=== PATIENT | female | born 1945 | race African-American/Black ===

== ENCOUNTER 2020-04-29 18:32 | IRF | payer OTHER, MEDICARE, SELFPAY ==
[2020-04-29 18:35] VITALS: BMI 31.6
--- NOTE | 2020-04-29 18:42 | ADMGEN ---
This patient, Calli Brown, was admitted to [facility] Room 218-01. Patient/family oriented to hospital policies and general routines including ID bracelet, bed and alarms, visiting hours, pain management, procedures, bathroom and other care routines, personal items, smoking policy, room service/diet, and visiting hours. Information on how to activate the Rapid Response Team has been discussed. Patient/Family are encouraged to report perceived risks to care and to ask questions if they do not understand what they are told or what they should do. [id number] Patient arrived to [facility] alert and oriented pleasant per ems, stable on trip here. daughter Dany here with patient
--- NOTE | 2020-04-29 18:47 | PC.NURSE ---
This patient, Calli Brown, was admitted to [facility] Room 218-01. Patient/family oriented to hospital policies and general routines including ID bracelet, bed and alarms, visiting hours, pain management, procedures, bathroom and other care routines, personal items, smoking policy, room service/diet, and visiting hours. Information on how to activate the Rapid Response Team has been discussed. Patient/Family are encouraged to report perceived risks to care and to ask questions if they do not understand what they are told or what they should do.
[2020-04-29 18:50] VITALS: BP 147/83; PULSE 90; RESP 20; TEMP 36.5; O2SAT 98
[2020-04-29] MEDS: ENOXAPARIN 40 MG/0.4 ML SYRINGE SUB-Q (21:10)
[2020-04-29 22:00] VITALS: BP 126/72; PULSE 68; RESP 16; TEMP 36.4; O2SAT 97
[2020-04-30 05:29] LABS: Basophils Percent Auto 0.5 % (0.2-1.2); Eosinophils Absolute Auto 0.1 K/mm3 (0-0.3); Eosinophils Percent Auto 0.9 % (0-4.4); Hematocrit 37.8 % (37.0-47.0); Hemoglobin 12.5 g/dL (12.0-15.0); Immature Granulocyte Absolute 0.02 K/mm3 (0.00-0.031); Immature Granulocyte Percent A 0.3 % (0-0.5); Lymphocytes Absolute Auto 2.31 K/mm3 (0.9-3.2); Lymphocytes Percent Auto 39.8 % (18.3-44.2); Mean Corpuscular HGB Conc 33.1 g/dl (32-36); Mean Corpuscular Volume 87.7 fl (80-100); Mean Platelet Volume 12.5 fl (7.4-10.4); Monocytes Absolute Auto 0.5 K/mm3 (0.1-0.6); Monocytes Percent Auto 8.6 % (2.6-8.5); Neutrophils Absolute Auto 2.9 K/mm3 (1.3-6.7); Neutrophils Percent Auto 49.9 % (45.5-73.1); Platelet Count Result 199 k/mm3 (150-375); Red Blood Count 4.31 M/mm3 (4.2-5.4); Red Cell Distribution Width 13.8 % (11.5-14.5); White Blood Count 5.8 K/mm3 (4.5-10.0)
[2020-04-30 05:39] LABS: Anion Gap 6 mmol/L (8-16); Blood Urea Nitrogen 13 mg/dL (7-17); Calcium 9.6 mg/dL (8.4-10.2); Carbon Dioxide 29 mmol/L (22-30); Chloride 107 mmol/L (98-107); Cholesterol 243 mg/dL (0-200); Estimated CRCL calculation 49 ml/min; Estimated Glomerular Filt Rate > 60; Glucose 106 mg/dL (65-105); HDL Direct 34 mg/dL; Potassium 3.8 mmol/L (3.4-5.0); Sodium 142 mmol/L (137-145); Triglycerides 148 mg/dL (<150)
[2020-04-30 05:50] LABS: LDL Cholesterol Direct 163 mg/dL
[2020-04-30 05:55] LABS: Atypical Lymphocytes Present; Platelet Estimate Adequate (Adequate)
[2020-04-30 06:00] VITALS: BP 129/70; PULSE 66; RESP 18; TEMP 36.8; O2SAT 97
[2020-04-30] MEDS: CLOPIDOGREL BISULFATE 75 MG TABLET PO (08:18)
[2020-04-30] MEDS: ATORVASTATIN 40 MG TABLET 80 MG PO (08:18)
[2020-04-30] MEDS: ASPIRIN 81 MG ENTERIC TABLET PO (08:18)
--- NOTE | 2020-04-30 10:00 | PM.IMHP ---
H&P: HPI History of Present Illness Date/Time: 04/30/20 11:20 Chief complaint: CVA Narrative: Calli Brown is a 75 year old female she is right-handed and is admitted with the primary have improvement medically of stroke The etiologic diagnosis acute infarct in the central right frontal lobe with moderately severe left hemiparesis The patient was examined by this examiner [id number] at 10:00 a.m. on April 30, 2020 H&P The patient is a 75-year-old right-handed Afro [place] woman with past medical history of hypertension hyperlipidemia and chronic knee pain. The patient presented to [facility] emergency room with complaints of left-sided weakness and April 26, 2020. The patient reported that on April 25 at 2:00 p.m. she noticed her left hand being weak having trouble typing and having a temporary ache in her left shoulder. The patient's symptom did resolve by nighttime on April 25. Upon awakening the morning of 04 26 at 5:00 a.m. the patient noticed weakness in her left leg and stated she had a hard time sitting up and ambulating. She fell while in the bathroom and denied injuries from this fall. She also noted left facial droop and slurring of the speech. A head CT showed focal hypodensities adjacent to the anterior horn of the lateral ventricles bilaterally, a new from 2015 comparison which most likely represented a small old lacunar infarcts. A brain MRI was recommended and minimal atrophy and [id number] small vessel ischemic disease was noted. Head and neck CTA revealed moderate narrowing of the right posterior cerebral artery age indeterminate proximal occlusion of the right vertebral artery, significant carotid atherosclerosis with 30% right ICA stenosis and 15% left ICA stenosis, scattered small involved air cyst in the right upper lobe with non emergent chest CT recommended. A brain MRI was obtained and revealed a small acute infarct in the central frontal right lobe additional tiny punctate foci of acute infarct in the left frontal lobe and chronic senescent changes. Dr. ang with tele Neurology was consulted and the patient was loaded with 300 milligram of Plavix was and started on 75 milligram daily with additional aspirin 81 milligram for 3 weeks then she will be on Plavix alone. Echocardiogram showed an ejection fraction of 65 to 70% and no shunt. She presented outside the window of tPA. She passed her bedside swallow evaluation and was placed on a regular can consistency heart healthy low-sodium diet physical examination continues to show left-sided weakness, decreased gross motor coming control, decreased safety awareness, left-sided neglect and impaired balance. She is awake alert oriented very well. The patient was discharged to us on Lovenox for DVT prophylaxis and will continue on this until she is ambulating ambulating consistently at least 150 feet daily The therapies were initiated at the acute care facility and the patient was transferred to us from [facility] in [facility] on May 07, 2020 The patient has had no major surgery in the last days. The patient has had 1 fall in the past year. Patient has had no falls with injury in the past year. Past medical history, hypertension, hyperlipidemia, and chronic knee pain. Past surgical history appendectomy and colonoscopy Past surgical history, appendectomy and colonoscopy Social history, the patient is single never smoker. Occasional use of alcohol. Denies any illicit use of drugs. 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 The patient is able to live on the main level with bedroom/bathroom available. The patient was completely independent prior and working as a nurse. She denies use the device at baseline. Family history, mother with hypertension stroke. Siblings with hypertension. Father with cancer. Prior level of function was completely independent in all spheres of
[2020-04-30 12:42] VITALS: BMI 31.6
--- NOTE | 2020-04-30 13:19 | PCNSR ---
On 04/30/20, the student, Meghan Hyde, provided care and completed [facility] documentation on this patient. I have reviewed the student's documentation and agree with the findings.
[2020-04-30 14:00] VITALS: BP 144/83; PULSE 87; RESP 16; TEMP 37.3; O2SAT 99
[2020-04-30] MEDS: ENOXAPARIN 40 MG/0.4 ML SYRINGE SUB-Q (20:23)
[2020-04-30 22:00] VITALS: BP 143/87; PULSE 72; RESP 16; TEMP 36.8; O2SAT 98
[2020-05-01 06:00] VITALS: BP 134/61; PULSE 65; RESP 14; TEMP 36.2; O2SAT 98
[2020-05-01] MEDS: ATORVASTATIN 40 MG TABLET 80 MG PO (08:19)
[2020-05-01] MEDS: ASPIRIN 81 MG ENTERIC TABLET PO (08:19)
[2020-05-01] MEDS: CLOPIDOGREL BISULFATE 75 MG TABLET PO (08:19)
[2020-05-01 14:00] VITALS: BP 144/70; PULSE 103; RESP 16; TEMP 36.1; O2SAT 97
[2020-05-01] MEDS: ENOXAPARIN 40 MG/0.4 ML SYRINGE SUB-Q (20:38)
[2020-05-01 21:29] VITALS: BP 129/73; PULSE 76; RESP 16; TEMP 36.6; O2SAT 95
[2020-05-02 06:00] VITALS: BP 122/54; PULSE 79; RESP 16; TEMP 36.8; O2SAT 95
[2020-05-02] MEDS: ASPIRIN 81 MG ENTERIC TABLET PO (09:38)
[2020-05-02] MEDS: CLOPIDOGREL BISULFATE 75 MG TABLET PO (09:38)
[2020-05-02] MEDS: ATORVASTATIN 40 MG TABLET 80 MG PO (09:38)
--- NOTE | 2020-05-02 09:54 | WPDNEURORHBP ---
Subjective Date/time seen: 05/02/20 09:54 Interval history: this 75-year-old Afro-Citizen Of [place] woman is here after having had stroke which has left her with the moderately severe left-sided hemiparesis from which she is improving quite a bit she has been able to walk with eye minh can with 150 feet several times so we should be able to discontinue Lovenox she denies any headache nausea vomiting chest pain shortness of breath fever chills sore throat Review of Systems Review of Systems: All systems reviewed & are unremarkable except as noted in HPI and below Functional Status Ambulation Ability Ability to Ambulate 10 Feet: Moderate Assistance X 1 Ability to Ambulate 50 Feet With 2 Turns: Moderate Assistance X 1 Ability to Ambulate 150 Feet: Moderate Assistance X 1 Ambulation Assistive Devices: Cane, Minh Exam Narrative: Exam Narrative: patient is awake alert well oriented time place and person has normal speech and language function and improving left-sided hemiparesis The ENT eye examination is fairly decent neck is supple lungs are clear cardiovascular examination is negative abdomen is soft nontender extremities is reveal no deformities Objective Data Vital Signs Vital Signs: Vital Signs - 24 hr 05/01/20 14:00 05/01/20 21:29 05/02/20 06:00 Temperature 36.1 C L 36.6 C 36.8 C Pulse Rate 103 H 76 79 Respiratory Rate 16 16 16 Blood Pressure 144/70 H 129/73 122/54 L Pulse Oximetry 97 95 95 Intake/Output Intake/Output: Intake & Output 04/29/20 04/30/20 05/01/20 05/02/20 23:59 23:59 23:59 23:59 Intake Total 840 840 Balance 840 840 Meds/Results Medications: Active Medications Generic Name Dose Route Start Last Admin Trade Name Freq PRN Reason Stop Dose Admin Aspirin 81 mg 04/30/20 09:00 05/02/20 09:38 Aspirin 81 Mg Enteric Tablet PO 81 mg DAILY JAYMIE Administration Atorvastatin Calcium 80 mg 04/30/20 09:00 05/02/20 09:38 Atorvastatin 40 Mg Tablet PO 80 mg DAILY JAYMIE Administration Calcium Carbonate 500 mg 04/29/20 21:00 05/01/20 20:38 Calcium/Vitamin D 500 Mg Tablet PO 05/29/20 21:01 500 mg HS JAYMIE Administration Clopidogrel Bisulfate 75 mg 04/30/20 09:00 05/02/20 09:38 Clopidogrel Bisulfate 75 Mg Tablet PO 75 mg DAILY JAYMIE Administration Diltiazem HCl 240 mg 04/29/20 21:00 05/01/20 20:38 Diltiazem Hcl Cd 240 Mg Cap.Er.24h PO 240 mg HS JAYMIE Administration Furosemide 20 mg 04/29/20 19:41 Furosemide 20 Mg Tablet PO DAILY PRN Edema Progress Note: A&P Assessment and Plan (1) Hyperlipidemia: Code(s): E78.5 - Hyperlipidemia, unspecified Status: Acute (2) Bilateral chronic knee pain: Code(s): M25.561 - Pain in right knee; M25.562 - Pain in left knee; G89.29 - Other chronic pain Status: Acute (3) Hypertension: Code(s): I10 - Essential (primary) hypertension Status: Acute (4) Stroke: Code(s): I63.9 - Cerebral infarction, unspecified Status: Acute (5) Left hemiparesis: Code(s): G81.94 - Hemiplegia, unspecified affecting left nondominant side Status: Acute Additional Plan we will continue the present medical management PT OT and gait training
--- NOTE | 2020-05-02 12:12 | RPD ---
INDIVIDUALIZED PLAN OF CARE FOR Calli Brown Brief Synthesis of Pre-Admission Screen, Post-Admission Evaluation and Therapy Evaluations: The patient presents to rehab with an acute infarct in the central right frontal lobe. Comorbidities include hypertension, hyperlipidemia, left-sided weakness, and chronic knee pain.This patient requires intensive therapies to restore lost function due to right frontal lobe stroke in order to maximize their functional level of independence and quality of life. The complexity of the patient's medical management, nursing, and therapy needs require an inpatient rehab hospital stay with a physician-led interdisciplinary team approach. The patient?s needs will be best met in an intensive program vs. at a lower level of care. The patient requires physician services for neurology services, medical oversight, and coordination of care. Emotional needs will be monitored as depression is a common sequelae of stroke. The patient needs physician monitoring and treatment of hypertension, monitoring for adverse reactions to new medications, monitoring for infection, and pain control. The patient requires nursing services for frequent neuro checks, anticoagulation therapy, medication management and education, pressure relief and skin care management, monitoring of labs, and fall/safety precautions. Deficits include:ADLs, Balance, Endurance, Family Training/Education, Mobility, Pain Management, ROM, Safety, Strength, and Transfers. Sales Service Assistant/Case Management for: Discharge Planning and Patient/Family Counseling Physical Therapy: 5 days per week for 90 minutes. Treatments may include: Therapeutic Exercise, Gait Training, Neuromuscular Re-education, Transfer Training, Community Reintegration, Bed Mobility, Patient/Family Education, Wheelchair Mobility Group Therapy/Concurrent Therapy Rationales: -Improve attention span during functional activities in a distracted environment. -Enhance problem solving and/or adequate judgment skills during functional activities in a distracted environment. -Promote increased safety awareness in a distracted environment to reduce fall risk with functional tasks, transfers, and ambulation to allow a more safe, self-sufficient return to the home environment. -Improve dynamic balance skills to promote safety and independence with functional activities in a distracted environment for maximum gain. Occupational Therapy: 5 days per week for 90 minutes. Treatments may include: Therapeutic Exercise, Therapeutic Activity, Cognitive Training, Self-Care Transfer Training, Community Reintegration, Home Management, Patient/Family Education, Wheelchair Mobility Training, Energy Conservation Training Group Therapy/Concurrent Therapy Rationales: -Allow therapist to observe and teach generalization and carry-over of skills learned in individual therapy. -Enhance problem solving and sequencing skills during therapeutic activities in a distracted environment. -Promote increased safety awareness in a realistic setting to reduce fall risk with functional tasks due to visual and verbal distractions. -Increase functional level with ADLs, ADL transfers and use of adaptive equipment through therapeutic activities with others while promoting safety to allow a more safe, self-sufficient return home. Medical Prognosis: Good Anticipated Length of Stay: 10 days Rehab Goals: Eating Goal: 06-Independent Oral Hygiene Goal: 06-Independent Toileting Hygiene Goal: 06-Independent Shower/Bathe Self Goal: 05-Setup or Clean Up Assistance Upper Body Dressing Goal: 05-Setup or Clean Up Assistance Lower Body Dressing Goal: 05-Setup or Clean Up Assistance Putting On/Taking Off Footwear Goal: 05-Setup or Clean Up Assistance Rolling Left and Right Goal: 06-Independent Sit to Lying Goal: 06-Independent Lying to Sitting on Side of Bed Goal: 06-Independent Sit to Stand Goal: 06-Independent Chair/[id number] Transfer Goal: 06-Independent Toilet
[2020-05-02 14:00] VITALS: BP 122/72; PULSE 86; RESP 16; TEMP 36.5; O2SAT 96
[2020-05-02 20:41] VITALS: BP 144/73; PULSE 85; RESP 16; TEMP 36.1; O2SAT 96
[2020-05-03 05:47] VITALS: BP 140/67; PULSE 62; RESP 16; TEMP 36; O2SAT 99
[2020-05-03 08:00] VITALS: PULSE 62; RESP 16; O2SAT 99
[2020-05-03] MEDS: ASPIRIN 81 MG ENTERIC TABLET PO (09:12)
[2020-05-03] MEDS: CLOPIDOGREL BISULFATE 75 MG TABLET PO (09:12)
[2020-05-03] MEDS: ATORVASTATIN 40 MG TABLET 80 MG PO (09:12)
--- NOTE | 2020-05-03 12:57 | WPDNEURORHBP ---
Subjective Date/time seen: 05/03/20 12:57 75 years old right-handed female admitted to the rehab floor with the diagnosis of right frontal lobe stroke and severe left hemiparesis in addition to history of hypertension, hyperlipidemia, and chronic knee pain, head and neck CTA moderate narrowing of the right posterior cerebral artery and indeterminate proximal occlusion of the right vertebral artery ,MRI documented a small infarct in the central frontal rightF. lobe and tiny punctate foci of acute infarcts in the left frontal lobe .she was treated with aspirin 81 mg to be continued for 3 weeks, loading dose of Plavix 300 mg ,with continuation 75 mg daily subsequently, she will be taken off aspirin after 3 weeks. echocardiogram was normal and she was outside the window of tPA. Review of Systems Review of Systems: Narrative: All systems reviewed & are unremarkable except as noted in HPI and below Functional Status Ambulation Ability Ability to Ambulate 10 Feet: Moderate Assistance X 1 Ability to Ambulate 50 Feet With 2 Turns: Moderate Assistance X 1 Ability to Ambulate 150 Feet: Moderate Assistance X 1 Ambulation Assistive Devices: Cane, Minh Exam Narrative: Exam Narrative: examination today revealed her to be awake alert cooperative in no obvious acute distress comfortably sitting in the chair. Oriented x3, pupils round regular, roy of vision full, extraocular movements full, face symmetrical, tongue midline motor examination revealed her to have left hemiparesis, hyperreflexia on the left side ,plantar response of upgoing on the left side ,heart regular ,lungs clear abdomen soft. Objective Data Vital Signs Vital Signs: Vital Signs - 24 hr 05/02/20 14:00 05/02/20 20:41 05/03/20 05:47 Temperature 36.5 C 36.1 C L 36.0 C L Pulse Rate 86 85 62 Respiratory Rate 16 16 16 Blood Pressure 122/72 144/73 H 140/67 Pulse Oximetry 96 96 99 05/03/20 08:00 Temperature Pulse Rate 62 Respiratory Rate 16 Blood Pressure Pulse Oximetry 99 Intake/Output Intake/Output: Intake & Output 04/30/20 05/01/20 05/02/20 05/03/20 23:59 23:59 23:59 23:59 Intake Total 840 840 480 200 Balance 840 840 480 200 Meds/Results Medications: Active Medications Generic Name Dose Route Start Last Admin Trade Name Freq PRN Reason Stop Dose Admin Aspirin 81 mg 04/30/20 09:00 05/03/20 09:12 Aspirin 81 Mg Enteric Tablet PO 81 mg DAILY JAYMIE Administration Atorvastatin Calcium 80 mg 04/30/20 09:00 05/03/20 09:12 Atorvastatin 40 Mg Tablet PO 80 mg DAILY JAYMIE Administration Calcium Carbonate 500 mg 04/29/20 21:00 05/02/20 20:27 Calcium/Vitamin D 500 Mg Tablet PO 05/29/20 21:01 500 mg HS JAYMIE Administration Clopidogrel Bisulfate 75 mg 04/30/20 09:00 05/03/20 09:12 Clopidogrel Bisulfate 75 Mg Tablet PO 75 mg DAILY JAYMIE Administration Diltiazem HCl 240 mg 04/29/20 21:00 05/02/20 20:27 Diltiazem Hcl Cd 240 Mg Cap.Er.24h PO 240 mg HS JAYMIE Administration Furosemide 20 mg 04/29/20 19:41 Furosemide 20 Mg Tablet PO DAILY PRN Edema Progress Note: A&P Assessment and Plan (1) Hyperlipidemia: Code(s): E78.5 - Hyperlipidemia, unspecified Status: Acute (2) Hypertension: Code(s): I10 - Essential (primary) hypertension Status: Acute (3) Left hemiparesis: Code(s): G81.94 - Hemiplegia, unspecified affecting left nondominant side Status: Acute (4) Stroke: Code(s): I63.9 - Cerebral infarction, unspecified Status: Acute (5) Bilateral chronic knee pain: Code(s): M25.561 - Pain in right knee; M25.562 - Pain in left knee; G89.29 - Other chronic pain Status: Acute Additional Plan stable,reviewed ,continued treatment as such.
[2020-05-03 14:00] VITALS: BP 120/66; PULSE 86; RESP 18; TEMP 36.9; O2SAT 99
[2020-05-03 22:00] VITALS: BP 141/80; PULSE 93; RESP 20; TEMP 36.6; O2SAT 98
[2020-05-04 06:00] VITALS: BP 108/47; PULSE 80; RESP 20; TEMP 36.7; O2SAT 99
[2020-05-04 08:00] VITALS: PULSE 80; RESP 20; O2SAT 99
[2020-05-04] MEDS: ATORVASTATIN 40 MG TABLET 80 MG PO (09:09)
[2020-05-04] MEDS: CLOPIDOGREL BISULFATE 75 MG TABLET PO (09:09)
[2020-05-04] MEDS: ASPIRIN 81 MG ENTERIC TABLET PO (09:09)
--- NOTE | 2020-05-04 13:18 | WPDNEURORHBP ---
Subjective Date/time seen: 05/04/20 13:18 75 years old right-handed female admitted to the rehab floor with a diagnosis of right frontal lobe stroke and severe left hemiparesis in addition to the history of hypertension hyperlipidemia and chronic knee pain. Head and neck CTA revealed moderate narrowing of the right posterior cerebral artery and indeterminate proximal occlusion of the right vertebral artery. MRI documented small infarct. she is receiving the medications aspirin along with the Plavix. Review of Systems Review of Systems: All systems reviewed & are unremarkable except as noted in HPI and below Functional Status Ambulation Ability Ability to Ambulate 10 Feet: Moderate Assistance X 1 Ability to Ambulate 50 Feet With 2 Turns: Moderate Assistance X 1 Ability to Ambulate 150 Feet: Moderate Assistance X 1 Ambulation Assistive Devices: Cane, Imnh Transfers Ability Ability to Transfer In/Out of Chair: Contact Guard Exam Narrative: Exam Narrative: On examination today she is awake alert oriented x3 in no obvious acute distress. Head normocephalic with no cranial bruit. Throat examinations are normal. There is no evidence of rhinorrhea or any drainage from the sinuses,heart regular with no murmur ,lungs clear to auscultation with no rhonchi or crepitations. Abdomen is soft with normal bowel sounds, no tenderness and no organomegaly, Neurological examination reveals her to be awake alert,, pupils round regular , vision ,full extraocular movements full,l face symmetrical tongue midline and motor examination of the leftwith left hemiparesis hyperreflexia and upgoing plantar response on the left side Objective Data Vital Signs Vital Signs: Vital Signs - 24 hr 05/03/20 14:00 05/03/20 22:00 05/04/20 06:00 Temperature 36.9 C 36.6 C 36.7 C Pulse Rate 86 93 80 Respiratory Rate 18 20 20 Blood Pressure 120/66 141/80 H 108/47 L Pulse Oximetry 99 98 99 05/04/20 08:00 Temperature Pulse Rate 80 Respiratory Rate 20 Blood Pressure Pulse Oximetry 99 Intake/Output Intake/Output: Intake & Output 05/01/20 05/02/20 05/03/20 05/04/20 23:59 23:59 23:59 23:59 Intake Total 840 480 680 240 Balance 840 480 680 240 Meds/Results Medications: Active Medications Generic Name Dose Route Start Last Admin Trade Name Freq PRN Reason Stop Dose Admin Aspirin 81 mg 04/30/20 09:00 05/04/20 09:09 Aspirin 81 Mg Enteric Tablet PO 81 mg DAILY JAYMIE Administration Atorvastatin Calcium 80 mg 04/30/20 09:00 05/04/20 09:09 Atorvastatin 40 Mg Tablet PO 80 mg DAILY JAYMIE Administration Calcium Carbonate 500 mg 04/29/20 21:00 05/03/20 20:19 Calcium/Vitamin D 500 Mg Tablet PO 05/29/20 21:01 500 mg HS JAYMIE Administration Clopidogrel Bisulfate 75 mg 04/30/20 09:00 05/04/20 09:09 Clopidogrel Bisulfate 75 Mg Tablet PO 75 mg DAILY JAYMIE Administration Diltiazem HCl 240 mg 04/29/20 21:00 05/03/20 20:19 Diltiazem Hcl Cd 240 Mg Cap.Er.24h PO 240 mg HS JAYMIE Administration Furosemide 20 mg 04/29/20 19:41 Furosemide 20 Mg Tablet PO DAILY PRN Edema Progress Note: A&P Assessment and Plan (1) Bilateral chronic knee pain: Code(s): M25.561 - Pain in right knee; M25.562 - Pain in left knee; G89.29 - Other chronic pain Status: Acute (2) Hyperlipidemia: Code(s): E78.5 - Hyperlipidemia, unspecified Status: Acute (3) Hypertension: Code(s): I10 - Essential (primary) hypertension Status: Acute (4) Left hemiparesis: Code(s): G81.94 - Hemiplegia, unspecified affecting left nondominant side Status: Acute (5) Stroke: Code(s): I63.9 - Cerebral infarction, unspecified Status: Acute Additional Plan stable ,will continue treatment as such
[2020-05-04 14:00] VITALS: BP 143/78; PULSE 84; RESP 18; TEMP 37; O2SAT 98
[2020-05-04 22:00] VITALS: BP 127/70; PULSE 79; RESP 16; TEMP 36.1; O2SAT 94
[2020-05-05 06:00] VITALS: BP 123/64; PULSE 70; RESP 16; TEMP 36.1; O2SAT 97
[2020-05-05 08:00] VITALS: PULSE 70; RESP 16; O2SAT 97
[2020-05-05] MEDS: ASPIRIN 81 MG ENTERIC TABLET PO (08:28)
[2020-05-05] MEDS: CLOPIDOGREL BISULFATE 75 MG TABLET PO (08:28)
[2020-05-05] MEDS: ATORVASTATIN 40 MG TABLET 80 MG PO (08:28)
--- NOTE | 2020-05-05 08:33 | PCPTNOTE ---
Calli Brown was evaluated for a kallie cane on 05/05/2020 by this physical therapist. The kallie cane will resolve patient's mobility limitations and will be used for ADL's within the home. The patient can safely use the kallie cane. ?The kallie cane will resolve the patient?s mobility deficits, including left hemiparesis, decreased balance and decreased endurance.
--- NOTE | 2020-05-05 13:12 | PCDIET ---
Nutrition Follow-Up Complete: Nutrition Diagnosis: Food and nutrition related knowledge deficit related to undesirable food choices and energy balance, as evidenced by obesity class I and CVA. Nutrition Goal: Intake will regulate and she will understand benefits and implementation of stroke preventative diet (heart healthy). Goal in progress. Patient with average intake of 65% of meals since last review. Heart healthy diet education completed this date. Patient not interested in nutritional supplements at this time. States daughter has been bringing in food from home (i.e. fruit) and current intake is typical for her. Last recorded weight is 73.6 kg. Recommend obtaining new weight. Bowel Motility: Last documented BM on 05/02/20, per nursing flowsheet. Labs Reviewed: No new labs available. Meds Noted: Lipitor, Oscal, Lasix Additional Notes: No documented skin breakdown. Will continue to monitor with same goal. Nutrition Monitoring and Evaluation: Follow up in 7 days.
[2020-05-05 14:00] VITALS: BP 113/72; PULSE 86; RESP 16; TEMP 36.7; O2SAT 97
[2020-05-05 19:50] VITALS: PULSE 78; RESP 18; O2SAT 99
[2020-05-05 20:42] VITALS: BP 110/75; PULSE 78; RESP 18; TEMP 36.5; O2SAT 99
[2020-05-06 04:58] VITALS: BP 125/51; PULSE 70; RESP 18; TEMP 36.8; O2SAT 99
[2020-05-06] MEDS: CLOPIDOGREL BISULFATE 75 MG TABLET PO (10:25)
[2020-05-06] MEDS: ATORVASTATIN 40 MG TABLET 80 MG PO (10:25)
[2020-05-06] MEDS: ASPIRIN 81 MG ENTERIC TABLET PO (10:25)
[2020-05-06 14:00] VITALS: BP 113/61; PULSE 86; RESP 20; TEMP 36.3; O2SAT 99
--- NOTE | 2020-05-06 17:17 | WPDNEURORHBP ---
Subjective Date/time seen: 05/06/20 17:17 75 years old right-handed female admitted to the rehab floor with a diagnosis of right frontal lobe stroke and severe left hemiparesis in addition to the history of hypertension, hyperlipidemia, and chronic knee pain. 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 MRI documented stroke ,patient is receiving medication including aspirin and Plavix involving the physical therapy and occupation therapy on a regular basis Review of Systems Review of Systems: All systems reviewed & are unremarkable except as noted in HPI and below Functional Status Ambulation Ability Ability to Ambulate 10 Feet: Minimum Assistance X 1 Ability to Ambulate 50 Feet With 2 Turns: Moderate Assistance X 1 Ability to Ambulate 150 Feet: Moderate Assistance X 1 Ambulation Assistive Devices: Cane, Minh Transfers Ability Ability to Transfer In/Out of Chair: Contact Guard Exam Narrative: Exam Narrative: examination revealed her to be awake alert oriented x3 no obvious acute distress, ear nose throat exams are normal, neck supple with no cervical bruits no thyromegaly no lymphadenopathy, heart regular with no murmur, lungs clear to auscultation,abdomen is soft, neurologically she has normal mental status normal speech the cranial examination is normal ,motor examination reveal her to have left hemiparesis with hyper reflexia and upgoing plantar responses Objective Data Vital Signs Vital Signs: Vital Signs - 24 hr 05/05/20 19:50 05/05/20 20:42 05/06/20 04:58 Temperature 36.5 C 36.8 C Pulse Rate 78 78 70 Respiratory Rate 18 18 18 Blood Pressure 110/75 125/51 L Pulse Oximetry 99 99 99 05/06/20 14:00 Temperature 36.3 C L Pulse Rate 86 Respiratory Rate 20 Blood Pressure 113/61 Pulse Oximetry 99 Intake/Output Intake/Output: Intake & Output 05/03/20 05/04/20 05/05/20 05/06/20 23:59 23:59 23:59 23:59 Intake Total 680 680 960 480 Balance 680 680 960 480 Meds/Results Medications: Active Medications Generic Name Dose Route Start Last Admin Trade Name Freq PRN Reason Stop Dose Admin Aspirin 81 mg 04/30/20 09:00 05/06/20 10:25 Aspirin 81 Mg Enteric Tablet PO 81 mg DAILY JAYMIE Administration Atorvastatin Calcium 80 mg 04/30/20 09:00 05/06/20 10:25 Atorvastatin 40 Mg Tablet PO 80 mg DAILY JAYMIE Administration Calcium Carbonate 500 mg 04/29/20 21:00 05/05/20 20:12 Calcium/Vitamin D 500 Mg Tablet PO 05/29/20 21:01 500 mg HS JAYMIE Administration Clopidogrel Bisulfate 75 mg 04/30/20 09:00 05/06/20 10:25 Clopidogrel Bisulfate 75 Mg Tablet PO 75 mg DAILY JAYMIE Administration Diltiazem HCl 240 mg 04/29/20 21:00 05/05/20 20:12 Diltiazem Hcl Cd 240 Mg Cap.Er.24h PO 240 mg HS JAYMIE Administration Furosemide 20 mg 04/29/20 19:41 Furosemide 20 Mg Tablet PO DAILY PRN Edema Progress Note: A&P Assessment and Plan (1) Hyperlipidemia: Code(s): E78.5 - Hyperlipidemia, unspecified Status: Acute (2) Bilateral chronic knee pain: Code(s): M25.561 - Pain in right knee; M25.562 - Pain in left knee; G89.29 - Other chronic pain Status: Acute (3) Left hemiparesis: Code(s): G81.94 - Hemiplegia, unspecified affecting left nondominant side Status: Acute (4) Stroke: Code(s): I63.9 - Cerebral infarction, unspecified Status: Acute (5) Hypertension: Code(s): I10 - Essential (primary) hypertension Status: Acute Additional Plan is stable continue the treatment as such
[2020-05-06 22:00] VITALS: BP 110/66; PULSE 75; RESP 18; TEMP 36.1; O2SAT 99
[2020-05-07 05:48] LABS: Basophils Absolute Auto 0.1 K/mm3 (0.0-0.1); Basophils Percent Auto 0.9 % (0.2-1.2); Eosinophils Absolute Auto 0.1 K/mm3 (0-0.3); Eosinophils Percent Auto 1.3 % (0-4.4); Hematocrit 35.8 % (37.0-47.0); Hemoglobin 11.6 g/dL (12.0-15.0); Immature Granulocyte Absolute 0.02 K/mm3 (0.00-0.031); Immature Granulocyte Percent A 0.4 % (0-0.5); Immature Platelet Fraction Pct 16.8 % (0.9-11.2); Lymphocytes Absolute Auto 1.75 K/mm3 (0.9-3.2); Lymphocytes Percent Auto 31.5 % (18.3-44.2); Mean Corpuscular HGB Conc 32.4 g/dl (32-36); Mean Corpuscular Hemoglobin 28.7 pg (26-34); Mean Corpuscular Volume 88.6 fl (80-100); Mean Platelet Volume 13.4 fl (7.4-10.4); Monocytes Absolute Auto 0.4 K/mm3 (0.1-0.6); Monocytes Percent Auto 7.6 % (2.6-8.5); Neutrophils Absolute Auto 3.3 K/mm3 (1.3-6.7); Neutrophils Percent Auto 58.3 % (45.5-73.1); Platelet Count Result 202 k/mm3 (150-375); Red Blood Count 4.04 M/mm3 (4.2-5.4); Red Cell Distribution Width 13.5 % (11.5-14.5); White Blood Count 5.6 K/mm3 (4.5-10.0)
[2020-05-07 05:55] LABS: Anion Gap 6 mmol/L (8-16); Blood Urea Nitrogen 13 mg/dL (7-17); Calcium 9.6 mg/dL (8.4-10.2); Carbon Dioxide 31 mmol/L (22-30); Chloride 104 mmol/L (98-107); Estimated CRCL calculation 55 ml/min; Estimated Glomerular Filt Rate > 60; Glucose 108 mg/dL (65-105); Potassium 3.9 mmol/L (3.4-5.0); Sodium 141 mmol/L (137-145)
[2020-05-07 06:00] VITALS: BP 137/67; PULSE 74; RESP 17; TEMP 36.1; O2SAT 95
[2020-05-07] MEDS: CLOPIDOGREL BISULFATE 75 MG TABLET PO (08:35)
[2020-05-07] MEDS: ATORVASTATIN 40 MG TABLET 80 MG PO (08:35)
[2020-05-07] MEDS: ASPIRIN 81 MG ENTERIC TABLET PO (08:35)
[2020-05-07 14:00] VITALS: BP 124/72; PULSE 89; RESP 18; TEMP 36.3; O2SAT 97
--- NOTE | 2020-05-07 17:22 | WPDNEURORHBP ---
Subjective Date/time seen: 05/07/20 17:22 75 years old right-handed female has been admitted to the rehab floor with diagnosis of right frontal lobe stroke and severe left hemiparesis in addition to the ongoing history of hypertension, hyperlipidemia, chronic knee pain. 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, MRI documented a stroke, patient is receiving medication including aspirin and Plavix and is involved in the physical therapy and occupational therapy on a regular basis , her CBC revealed today WBC 5.6 hemoglobin 11.6 and platelet count of 202 with glucose of 108, she is afebrile and normotensive Review of Systems Review of Systems: All systems reviewed & are unremarkable except as noted in HPI and below Functional Status Ambulation Ability Ability to Ambulate 10 Feet: Minimum Assistance X 1 Ability to Ambulate 50 Feet With 2 Turns: Moderate Assistance X 1 Ability to Ambulate 150 Feet: Moderate Assistance X 1 Ambulation Assistive Devices: Cane, Minh Transfers Ability Ability to Transfer In/Out of Chair: Standby Assistance Exam Narrative: Exam Narrative: examination today revealed her to be awake alert oriented x3 in no obvious acute distress, ear nose throat exam was normal, neck was supple with no cervical bruit,no thyromegaly, no lymphadenopathy, mucous membranes were moist, no evidence of rhinorrhea , heart regular with no murmur, lungs clear to auscultation abdomen is soft, neuro examination revealed her to have normal mental status, normal speech, the cranial nerve examination was normal motor exam was consistent with a left hemiparesis with hyperreflexia and upgoing plantar responses ,she has been able to transfer in and out of chair with contact guard and she is ambulating up to 150ft with moderate assistance of 1 using cane Objective Data Vital Signs Vital Signs: Vital Signs - 24 hr 05/06/20 22:00 05/07/20 06:00 05/07/20 14:00 Temperature 36.1 C L 36.1 C L 36.3 C L Pulse Rate 75 74 89 Respiratory Rate 18 17 18 Blood Pressure 110/66 137/67 124/72 Pulse Oximetry 99 95 97 Intake/Output Intake/Output: Intake & Output 05/04/20 05/05/20 05/06/20 05/07/20 23:59 23:59 23:59 23:59 Intake Total 680 960 720 600 Balance 680 960 720 600 Meds/Results Medications: Active Medications Generic Name Dose Route Start Last Admin Trade Name Yanira PRN Reason Stop Dose Admin Aspirin 81 mg 04/30/20 09:00 05/07/20 08:35 Aspirin 81 Mg Enteric Tablet PO 81 mg DAILY JAYMIE Administration Atorvastatin Calcium 80 mg 04/30/20 09:00 05/07/20 08:35 Atorvastatin 40 Mg Tablet PO 80 mg DAILY JAYMIE Administration Calcium Carbonate 500 mg 04/29/20 21:00 05/06/20 20:04 Calcium/Vitamin D 500 Mg Tablet PO 05/29/20 21:01 500 mg HS JAYMIE Administration Clopidogrel Bisulfate 75 mg 04/30/20 09:00 05/07/20 08:35 Clopidogrel Bisulfate 75 Mg Tablet PO 75 mg DAILY JAYMIE Administration Diltiazem HCl 240 mg 04/29/20 21:00 05/06/20 20:04 Diltiazem Hcl Cd 240 Mg Cap.Er.24h PO 240 mg HS JAYMIE Administration Furosemide 20 mg 04/29/20 19:41 Furosemide 20 Mg Tablet PO DAILY PRN Edema Labs Labs: Laboratory Results - last 24 hr 05/07/20 05/07/20 04:46 04:46 WBC 5.6 RBC 4.04 L Hgb 11.6 L Hct 35.8 L MCV 88.6 MCH 28.7 MCHC 32.4 RDW 13.5 Plt Count 202 MPV 13.4 H Immature Gran % (Auto) 0.4 Neut % (Auto) 58.3 Lymph % (Auto) 31.5 [place] % (Auto) 7.6 Eos % (Auto) 1.3 Baso % (Auto) 0.9 Lymph # (Auto) 1.75 [place] # (Auto) 0.4 Eos # (Auto) 0.1 Baso # (Auto) 0.1 Abs Immat Gran (auto) 0.02 Absolute Neuts (auto) 3.3 Absolute Nucleated RBC 0.0 Nucleated RBC % 0.0 % Immature Plt Fraction 16.8 H Sodium 141 Potassium 3.9 Chloride 104 Carbon Dioxide 31 H Anion Gap 6 L BUN 13 Creatinine 0.70 Estim Creat Clear
[2020-05-07 22:00] VITALS: BP 134/63; PULSE 67; RESP 16; TEMP 36.1; O2SAT 100
[2020-05-08 06:00] VITALS: BP 151/75; PULSE 72; RESP 16; TEMP 36.3; O2SAT 96
[2020-05-08] MEDS: ATORVASTATIN 40 MG TABLET 80 MG PO (08:59)
[2020-05-08] MEDS: CLOPIDOGREL BISULFATE 75 MG TABLET PO (08:59)
[2020-05-08] MEDS: ASPIRIN 81 MG ENTERIC TABLET PO (08:59)
[2020-05-08 14:00] VITALS: BP 119/69; PULSE 79; RESP 18; TEMP 36.3; O2SAT 95
--- NOTE | 2020-05-08 14:38 | PCDIET ---
Nutrition Follow-Up Complete: Nutrition Diagnosis: Food and nutrition related knowledge deficit related to undesirable food choices and energy balance, as evidenced by obesity class I and CVA. Nutrition Goal: Patient intake will regulate and she will understand benefits and implementation of stroke preventative diet (heart healthy). Goal met. Patient consumed average of 80% of meals since last review. Diet is heart healthy which is appropriate. Last recorded weight is 73.6 kg. Recommend obtaining new weight. Bowel Motility: Last documented BM on 05/02/20. Patient reportedly refusing medications to promote BM. Labs Reviewed: Hgb (11.6), Hct (35.8), Glu (108) Meds Noted: Lipitor, Oscal, Colace, Miralax, Lasix Additional Notes: No documented skin breakdown. Will continue to monitor with same goal. Nutrition Monitoring and Evaluation: Follow up in 5 days.
[2020-05-08] MEDS: polyethylene glycoL 3350 17 GM POWD.PACK PO (17:05)
[2020-05-08 20:00] VITALS: O2SAT 97
[2020-05-08] MEDS: DOCUSATE SODIUM 100 MG CAPSULE PO (21:56)
[2020-05-08 22:00] VITALS: BP 105/51; PULSE 71; RESP 20; TEMP 36.2; O2SAT 97
[2020-05-09 05:37] VITALS: BP 147/71; PULSE 74; RESP 20; TEMP 36.1; O2SAT 96
[2020-05-09] MEDS: ATORVASTATIN 40 MG TABLET 80 MG PO (08:39)
[2020-05-09] MEDS: CLOPIDOGREL BISULFATE 75 MG TABLET PO (08:39)
[2020-05-09] MEDS: ASPIRIN 81 MG ENTERIC TABLET PO (08:39)
--- NOTE | 2020-05-09 12:30 | WPDNEURORHBP ---
Subjective Date/time seen: 05/09/20 12:30 75 years old right-handed female was admitted to rehab floor with a diagnosis of right frontal lobe stroke and severe left hemiparesis. Additionally she had the ongoing history of 1. Hypertension 2. Hyperlipidemia 3. Chronic knee pain and 4. 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 during the hospitalization here she received aspirin and Plavix was involving the physical therapy and occupational therapy on a regular basis on 05/07 her hemoglobin was 11.6 with WBC 5.6 platelet count of 202 and blood glucose of 108 though cholesterol was 243 she has been receiving atorvastatin 80 mg daily along with the aspirin 81 mg daily and clopidogrel 75 mg daily she has done fairly well at this stage she is ambulating 150ft with moderate assistance of 1 causing the Hem I came and able to transfer in and out of chair with standby assistance she will be discharged tomorrow her condition has significantly improved Functional Status Ambulation Ability Ability to Ambulate 10 Feet: Contact Guard Ability to Ambulate 50 Feet With 2 Turns: Contact Guard Ability to Ambulate 150 Feet: Contact Guard Ambulation Assistive Devices: Cane, Minh Transfers Ability Ability to Transfer In/Out of Chair: Contact Guard Exam Narrative: Exam Narrative: on examination today she is awake alert cooperative in no obvious acute distress high speech is not dysphasic no dysarthric no dysphonic ear nose throat examination is normal mucous membranes are normal heart regular with no murmur lungs clear to auscultation abdomen is soft with no organomegaly normal bowel sounds nontender and neuro examination revealed her to have left hemiparesis with hyperreflexia and upgoing plantar response Objective Data Vital Signs Vital Signs: Vital Signs - 24 hr 05/08/20 14:00 05/08/20 20:00 05/08/20 22:00 Temperature 36.3 C L 36.2 C L Pulse Rate 79 71 Respiratory Rate 18 20 Blood Pressure 119/69 105/51 L Pulse Oximetry 95 97 97 05/09/20 05:37 Temperature 36.1 C L Pulse Rate 74 Respiratory Rate 20 Blood Pressure 147/71 H Pulse Oximetry 96 Intake/Output Intake/Output: Intake & Output 05/06/20 05/07/20 05/08/20 05/09/20 23:59 23:59 23:59 23:59 Intake Total 720 600 720 360 Balance 720 600 720 360 Meds/Results Medications: Active Medications Generic Name Dose Route Start Last Admin Trade Name Sebastianq PRN Reason Stop Dose Admin Aspirin 81 mg 04/30/20 09:00 05/09/20 08:39 Aspirin 81 Mg Enteric Tablet PO 81 mg DAILY JAYMIE Administration Atorvastatin Calcium 80 mg 04/30/20 09:00 05/09/20 08:39 Atorvastatin 40 Mg Tablet PO 80 mg DAILY JAYMIE Administration Calcium Carbonate 500 mg 04/29/20 21:00 05/08/20 21:56 Calcium/Vitamin D 500 Mg Tablet PO 05/29/20 21:01 500 mg HS JAYMIE Administration Clopidogrel Bisulfate 75 mg 04/30/20 09:00 05/09/20 08:39 Clopidogrel Bisulfate 75 Mg Tablet PO 75 mg DAILY JAYMIE Administration Diltiazem HCl 240 mg 04/29/20 21:00 05/08/20 21:56 Diltiazem Hcl Cd 240 Mg Cap.Er.24h PO 240 mg HS JAYMIE Administration Docusate Sodium 100 mg 05/08/20 21:00 05/08/20 21:56 Docusate Sodium 100 Mg Capsule PO 100 mg Q24H JAYMIE Administration Furosemide 20 mg 04/29/20 19:41 Furosemide 20 Mg Tablet PO DAILY PRN Edema Polyethylene Glycol 17 gm 05/08/20 13:58 05/08/20 17:05 Polyethylene Glycol 3350 17 Gm Powd.Pack PO 17 gm QAM PRN Administration Constipation Progress Note: A&P Assessment and Plan (1) Hyperlipidemia: Code(s): E78.5 - Hyperlipidemia, unspecified Status: Acute (2) Bilateral chronic knee pain: Code(s): M25.561 - Pain in right knee; M25.562 - Pain in left knee; G89.29 - Other chronic pain Status: Acute (3) Hypertension: Code(s): I10 - Essential (primary) hypertension Status: Acute (4)
[2020-05-09 14:00] VITALS: BP 112/69; PULSE 87; RESP 20; TEMP 36.5; O2SAT 99
[2020-05-09 20:00] VITALS: PULSE 69; RESP 20; O2SAT 96
[2020-05-09] MEDS: DOCUSATE SODIUM 100 MG CAPSULE PO (20:08)
[2020-05-09] MEDS: polyethylene glycoL 3350 17 GM POWD.PACK PO (20:08)
[2020-05-09 22:00] VITALS: BP 127/64; PULSE 69; RESP 20; TEMP 36.2; O2SAT 96
[2020-05-10 05:47] VITALS: BP 149/68; PULSE 65; RESP 16; TEMP 36.6; O2SAT 95
[2020-05-10 09:00] VITALS: PULSE 68; RESP 16; O2SAT 95
[2020-05-10] MEDS: ATORVASTATIN 40 MG TABLET 80 MG PO (09:06)
[2020-05-10] MEDS: CLOPIDOGREL BISULFATE 75 MG TABLET PO (09:06)
[2020-05-10] MEDS: ASPIRIN 81 MG ENTERIC TABLET PO (09:07)
--- NOTE | 2020-05-15 15:05 | PM.DS ---
DS: Admitting Diagnosis Admitting Diagnosis Admitting Diagnosis: 75 years old right-handed female admitted to the rehab floor with acute infarct in the central right frontal lobe and moderately severe left hemiparesis in addition to the comorbid conditions of 1. Hypertension 2. Hyperlipidemia 3. Chronic knee pain. as per the information available at the time of admission patient required Eating set up Oral Care partial assistance Toileting Hygiene substantial assistance Shower/Bathing partial assistance Upper Body Dressing partial assistance Lower Body Dressing partial assistance Donning/[place] Footwear partial assistance Rolling Left and Right supervision Sit to Lying supervision Lying to Sitting supervision Sit to Stand partial assist Bed to Chair Transfers partial assistance Toilet Transfers partial assistance Car Transfers partial assistance Walking 10' partial assistance Walking 50' with Two Turns partial assistance walking 150ft patient was unable Curb or Step partial assistance 4 steps partial assistance 12 Steps patient unable to Picking Up Object partial assistance [Wheelchair Mobility 50' partial assistance [Wheelchair Mobility 150' partial assistance GOALS: Eating [INDEPENDENT] Oral Care [INDEPENDENT] Toileting Hygiene [INDEPENDENT] Shower/Bathing set up Upper Body Dressing set up Lower Body Dressing set up Donning/[place] Footwear set up Rolling Left and Right [INDEPENDENT] Sit to Lying [INDEPENDENT] Lying to Sitting [INDEPENDENT] Sit to Stand [INDEPENDENT] Bed to Chair Transfers [INDEPENDENT] Toilet Transfers [INDEPENDENT] Car Transfers [INDEPENDENT] Walking 10' [INDEPENDENT] Walking 50' with Two Turns [INDEPENDENT] Walking 150' [INDEPENDENT] Curb or Step [INDEPENDENT] 4 Steps [INDEPENDENT] 12 Steps [INDEPENDENT] Picking Up Object [INDEPENDENT] [Wheelchair Mobility 50'] [INDEPENDENT] [Wheelchair Mobility 150'] [INDEPENDENT] DISCHARGE PERFORMANCE: Eating [INDEPENDENT] Oral Care [INDEPENDENT] Toileting Hygiene [INDEPENDENT] Shower/Bathing supervision Upper Body Dressing partial assistance Lower Body Dressing supervision Donning/[place] Footwear supervision Rolling Left and Right [INDEPENDENT] Sit to Lying [INDEPENDENT] Lying to Sitting [INDEPENDENT] Sit to Stand supervision Bed to Chair Transfers super B Toilet Transfers supervision car transfers supervision Walking 10' on uneven surfaces supervision Walking 50' with Two Turns supervision] Walking 150' supervision Curb or Step supervision 4 Steps [ supervision 12 Steps supervising Picking Up Object [ super vision [Wheelchair Mobility 50'] [INDEPENDENT] [Wheelchair Mobility 150'] [INDEPENDENT] The patient had [no falls]. DS: Summary Time Spent with Patient Time attestation: Total time spent providing and/or coordinating discharge services: Exam Narrative: Exam Narrative: admitted to the rehab floor with a diagnosis of right frontal lobe stroke and severe left hemiparesis she was involved the physical therapy and occupational therapy regularly has no unusual problem during the entire hospitalization was able to ambulate up to 150ft with contact guard using the a.m. I [place] and able to transfer in and out of chair using the contact guard at the time of discharge are head was normocephalic ear nose throat examination was normal neck was supple with no restriction of the non range of motion heart regular lungs clear with no rhonchi or crepitation abdomen is soft with no organomegaly normal bowel sounds nontender and neurological examination unchanged she was discharged to home with home health during the entire hospitalization she had no fall and hertz condition significantly improved Discharge Plan Discharge Attending physician on discharge: Benjie Perez Discharging Clinician: Denys Gr Patient Disposition: Home Health Service Activity: may shower, no driving and as tolerated Discharge Instructions: Per Care Coord
== END 2020-05-10 13:00 | disposition home health service (06) | DRG 57 ==
PROVIDERS: Admitting Provider Psychiatry & Neurology Neurology; PCP Family Medicine; Visit Provider Psychiatry & Neurology Neurology
DX: I69.354 Hemiplegia and hemiparesis following cerebral infarction affecting left non-dominant side (principal); E78.5 Hyperlipidemia, unspecified; G89.29 Other chronic pain; I10 Essential (primary) hypertension; M25.561 Pain in right knee; M25.562 Pain in left knee; Z79.02 Long term (current) use of antithrombotics/antiplatelets; Z79.82 Long term (current) use of aspirin
CPT/HCPCS: 36415; 80048; 80061; 85025; 85055; 92507; 92523; 97110; 97112; 97116; 97161; 97165; 97530; 97535; 97542; A9270; J1650

== ENCOUNTER 2020-09-19 11:32 | Outpatient (CLI) | payer MEDICARE, OTHER, SELFPAY ==
--- NOTE | ~2020-09-19 | XR_ITS ---
EXAMINATION: XR shoulder LT min 2V INDICATION: Left shoulder weakness TECHNIQUE: Four views of the left shoulder are submitted. COMPARISON: None FINDINGS: Normal alignment. No fracture. There is mild osteoarthritis of the acromioclavicular and gl enohumeral joints. Soft tissues are unremarkable. IMPRESSION: 1. Mild osteoarthritis. Reviewed, dictated and finalized at location A. HEAD COUNSELOR IMPRESSION: 1. Mild osteoarthritis.
== END 2020-09-19 11:33 | disposition home or self-care (01) ==
PROVIDERS: Visit Provider Psychiatry & Neurology Neurology
DX: M19.012 Primary osteoarthritis, left shoulder (principal)
CPT/HCPCS: 73030